=== PATIENT | male | born 1950 | race Caucasian/White ===

== ENCOUNTER 2017-02-02 14:49 | Emergency (ER) | payer OTHER, MEDICARE ==
[~2017-02-02] VITALS: Ht 188 cm; Wt 65.8 kg
--- NOTE | 2017-02-02 15:03 | ED UPPER/LOWER EXTREMITY COMPL ---
History of Present Illness General Chief Complaint: Laceration Procedure Stated Complaint: TABLESAW VS FINGERS ?AMPUTATION Source: patient Exam Limitations: no limitations Vital Signs & Intake/Output Vital Signs & Intake/Output Vital Signs Date Time Temp Pulse Resp B/P B/P Pulse O2 O2 Flow FiO2 Mean Ox Delivery Rate 02/029 70 16 123/64 95 Room Air 02/02 1714 77 18 107/60 98 Room Air ED Intake and Output 02/03 0000 02/02 1200 Intake Total Output Total Balance Patient 145 lb Weight Weight Reported by Patient Measurement Method Allergies Coded Allergies: NO KNOWN ALLERGIES (02/02/17) Reconcile Medications Amoxicillin/Potassium Clav (Augmentin 875-125 Tablet) 875 MG-125 MG TABLET 1 TAB PO BID LACERATION/FRACTURE Levothyroxine Sodium 150 MCG TABLET 1 TAB PO DAILY THYROID (Reported) Lisinopril 20 MG TABLET 1 TAB PO DAILY BP (Reported) Multivitamin (Multi-Day Vitamins) 1 EACH TABLET 1 TAB PO DAILY SUPPLEMENT ( Reported) Oxycodone HCl/Acetaminophen (Percocet 5-325 MG Tablet) 5 MG-325 MG TABLET 1 TAB PO TID PRN PAIN DO NOT OPERATE MOTOR VEHICLES WHILE TAKING THIS MEDICATION Simvastatin (Simvastatin*) 40 MG TABLET 1 TAB PO QPM CHOLESTEROL (Reported) Sumatriptan Succinate 100 MG TABLET 1 TAB PO AD PRN MIGRAINES (Reported) may repeat in 2 hours; do not exceed 200 mg in 24 hours [SUNCHORELLA] 1 CAP PO BID SUPPLEMENT (Reported) Triage Note: PT TO TRIAGE WITH LAC TO LEFT HAND OF 1-4 DIGITS ON A TABLE SAW. BLEEDING CONTROLED, BONE INVOLVED. PT APPEARED TO BE CLOSE TO PASSING OUT IN TRIAGE. PT BROUGHT TO [facility]. PT COMPLETELY PASSED OUT ONCE HE ARRIVED TO [facility], DR VINCENT AT BESIDE Triage Nurses Notes Reviewed? yes Onset: Abrupt Duration: constant Timing: single episode today Severity: severe Severity Numbers: 10 Pain/Injury Location: Left: 1st finger, 2nd finger, 3rd finger, 4th finger. Method of Injury: laceration HPI: Patient is a 66-year-old male who presents to emergency room stating that today while sawing TODAY he accidentally sawed the distal aspects of his right first through fourth digits of his hand resulting in significant lacerations. Bleeding was not controlled prior to arrival patient on arrival was noted to be presyncope Patient is a left arm dominant. tetanus is unknown (EDNA HOYT) Past History Travel History Traveled to [place] past 21 day No Medical History Any Pertinent Medical History? see below for history Cardiovascular: hypertension, hyperlipidemia Endocrine: hypothyroidism Surgical History Surgical History: non-contributory Psychosocial History What is your primary language Tanz[place] Family History Hx Contributory? No (EDNA HOYT) Review of Systems Review of Systems Constitutional: Reports: no symptoms. EENTM: Reports: no symptoms. Respiratory: Reports: no symptoms. Cardiovascular: Reports: no symptoms. Gastrointestinal/Abdominal: Reports: no symptoms. Genitourinary: Reports: no symptoms. Musculoskeletal: Reports: see HPI, joint pain. Skin: Reports: see HPI. Neurological/Psychological: Reports: no symptoms. Hematologic/Endocrine: Reports: see HPI, bleeding. Immunological: Reports: no symptoms. All Other Systems: Reviewed and Negative (EDNA HOYT) Physical Exam Physical Exam General Appearance: moderate distress Head: atraumatic Eyes: Bilateral: normal appearance, PERRL, EOMI. Ears, Nose, Throat: normal pharynx Cardiovascular/Respiratory: normal breath sounds, normal peripheral pulses, regular rate/rhythm Peripheral Pulses: 2+ radial (R), 2+ radial (L) Neurologic/Tendon: normal sensation, normal motor functions, normal tendon functions, responds to pain, no evidence tendon injury, no pulse deficit Skin: normal color Diagram Hands Front 1) Noted significant irregular serrated deep lacerations with fracture of nail Sensation intact no active bleeding full active range of motion noted with flexion extension abduction and adduction with resistance no tendon deficit 2) Noted significant irregular serrated deep lacerations with fracture of nail Sensation intact no active bleeding full active range of motion noted with flexion extension abduction and adduction with resistance no tendon deficit 3) Noted distal serrated deep laceration full active range of motion noted. Range of motion noted 4) Noted subcutaneous laceration full active range of motion full resisted range of motion (EDNA HOYT) Progress Differential Diagnosis: arterial insufficiency, compartment syndrome, contusion, dislocation, DVT, fracture, gout, septic arthritis, sprain, tendon injury Plan of Care: Orders Procedure Date/time Status Durable Medical Equipment 02/03 5883 Active X-rays resulted and first and second digit of right hand fractures in which at this time on exam there is no concerns of tendon deficit. Patient on initial examination was noted to have vasovagal syncope for approximately 10 seconds where he was in significant pain. Blood pressure was hypotensive in which IV was established and IV fluid resuscitation was administered blood work and EKG was unremarkable. Approximate 25 minutes later after ketorolac was administered and IV fluids were administered patient had significant please resolution of his symptoms. Patient was given 2 mg of morphine with now patient is resting currently that bedside. Dr. Arreguin will be presented to the emergency room for suture repair. Discussed hand off with JASPREET Arreguin will advise patient for follow-up IN HIS OFFICE currently he is performing the suture repair. He advised patient to be given Augmentin. Xeroform bandages were given to (EDNA HOYT) Diagnostic Imaging: Viewed by Me: Radiology Read. Radiology Impression: acute abnormality, fracture Hand-Off Endorsed To: FAMILIA SUBRAMANIAN Endorsed Time: 2001 Pending: other Comments: PATIENT: JAQUELIN ROBERTS PRESENT AGE: 66 PATIENT ACCOUNT NO: [id number] : 49 LOCATION: [facility] ORDERING PHYSICIAN: WENDY VINCENT MD SERVICE DATE: 02/02/17 EXAM TYPE: RAD - XRY-FINGERS, RIGHT EXAMINATION: Right fingers CLINICAL INFORMATION: Lacerations with table saw COMPARISON: None TECHNIQUE: Three views of the right hand. FINDINGS: There is soft tissue amputation of the distal tip and ulnar side of the index finger. Soft tissue laceration and partial amputation of the distal tip of the middle digit. Small soft tissue laceration of the ring finger distally at the ulnar side of the fifth digit. There is a fracture with slight displacement of the distal tuft of the index finger at the ulnar side of the bone. No osseous abnormality seen of the middle or ring finger. Thumb has a displaced fracture fragment from the proximal phalanx of the thumb at the radial side of the bone at the IP joint. The fracture fragment is displaced distally. The fracture fragment measures about 5 mm. There is an associated soft tissue laceration. There is no radiopaque foreign body. IMPRESSION: 1. Laceration with fracture of the distal index finger and at the proximal phalanges of the thumb at the IP joint. 2. Soft tissue laceration without bony abnormality of the distal middle and ring finger. DICTATED BY: TANNER SULLIVAN MD DATE/TIME DICTATED:02/02/171524 VAT CLEANER:ALICIA DATE/TIME TRANSCRIBED:02/02/171524 (EDNA HOYT) Departure Departure Disposition: HOME OR SELF CARE Condition: Stable Clinical Impression Primary Impression: Laceration of finger, complicated Secondary Impressions: Fracture of distal phalanx of finger of right hand Referrals: ANDRZEJ MATOS,CHERY SERRANO MD,TULIO Turner (PCP/Family) Additional Instructions: As discussed begin the prescription of Augmentin as directed for the full course and begin the prescription of Percocet for pain. If you note signs of infection redness, pain, swelling, discharge return to emergency room. Follow-up with plastic surgeon Dr. Arreguin as directed. Prescription is waiting at [facility] pharmacy. Departure Forms: Customer Survey General Discharge Information Prescriptions: Current Visit Scripts Amoxicillin/Potassium Clav (Augmentin 875-125 Tablet) 1 TAB PO BID #20 TAB Oxycodone HCl/Acetaminophen (Percocet 5-325 MG Tablet) 1 TAB PO TID PRN PAIN #10 TAB DO NOT OPERATE MOTOR VEHICLES WHILE TAKING THIS MEDICATION (EDNA HOYT) PA/SUPPLEMENTAL MANAGER Co-Sign Statement Statement: ED Attending supervision documentation- [X] I saw and evaluated the patient. I have also reviewed all the pertinent lab results and diagnostic results. I agree with the findings and the plan of care as documented in the PA's/SUPPLEMENTAL MANAGER's documentation. [X] I have reviewed the ED Record and agree with the PA's/SUPPLEMENTAL MANAGER's documentation. [] Additions or exceptions (if any) to the PAs/SUPPLEMENTAL MANAGER's note and plan are summarized below: [] (VITO MATOS,BOO Stewart) (EDNA HOTY)
[2017-02-02 15:26] LABS: ABSOLUTE BASOPHIL COUNT 0 /CUMM (0.0-0.2); ABSOLUTE EOSINOPHIL COUNT 0.2 /CUMM (0.0-0.7); ABSOLUTE GRANULOCYTE CT 4.8 /CUMM (1.4-6.5); ABSOLUTE MONOCYTE COUNT 0.6 /CUMM (0.10-0.60); BASOPHIL % 0.5 % (0.0-2.0); EOSINOPHIL % 2.6 % (0-5); GRANULOCYTE % 55.3 % (42.2-75.2); HEMATOCRIT 42.2 % (42-52); MEAN CORPUSCULAR HGB 30.6 PG (27.0-31.0); MEAN CORPUSCULAR VOLUME 89.9 FL (80.0-94.0); MEAN PLATELET VOLUME 7.9 FL (7.4-10.4); PLATELET COUNT 249 /CUMM (130-400); RBC DISTRIBUTION WIDTH 13.6 % (11.5-14.5); RED BLOOD CELL CT 4.69 /CUMM (4.70-6.10); WHITE BLOOD CELL COUNT 8.6 /CUMM (4.8-10.8)
--- NOTE | 2017-02-02 15:33 | RADIOLOGY REPORT ---
EXAMINATION: Right fingers CLINICAL INFORMATION: Lacerations with table saw COMPARISON: None TECHNIQUE: Three views of the right hand. FINDINGS: There is soft tissue amputation of the distal tip and ulnar side of the index finger. Soft tissue laceration and partial amputation of the distal tip of the middle digit. Small soft tissue laceration of the ring finger distally at the ulnar side of the fifth digit. There is a fracture with slight displacement of the distal tuft of the index finger at the ulnar side of the bone. No osseous abnormality seen of the middle or ring finger. Thumb has a displaced fracture fragment from the proximal phalanx of the thumb at the radial side of the bone at the IP joint. The fracture fragment is displaced distally. The fracture fragment measures about 5 mm. There is an associated soft tissue laceration. There is no radiopaque foreign body. IMPRESSION: 1. Laceration with fracture of the distal index finger and at the proximal phalanges of the thumb at the IP joint. 2. Soft tissue laceration without bony abnormality of the distal middle and ring finger.
[2017-02-02] MEDS ORDERED: SIMVASTATIN40 M1 PO (16:17)
[2017-02-02] MEDS ORDERED: LISINOPRIL20 M1 PO (16:17)
[2017-02-02] MEDS ORDERED: LEVOTHYROXINE150 MCG PO (16:17)
[2017-02-02] MEDS ORDERED: MULTI-DAY VITA1 EACH PO (16:18)
[2017-02-02] MEDS ORDERED: SUMATRIPTAN SU100 M1 PO (16:18)
[2017-02-02] MEDS ORDERED: [UNRECOGNIZED DRUG - OTHER] PO (16:18)
[2017-02-02] MEDS ORDERED: AUGMENTIN 875-1 EACH PO (19:54)
[2017-02-02] MEDS ORDERED: PERCOCET 5-3251 EACH PO (19:54)
[2017-02-02 20:59] VITALS: BP 123/64
--- NOTE | 2017-02-03 18:31 | Cons- Plastic Surgery ---
General Information and HPI Consulting Request Date of Consult: 02/02/17 Requested By: ED Reason for Consult: Right hand laceration Source of Information: patient Exam Limitations: no limitations History of Present Illness: 66 yo male s/p laceration repair of right thumb, index, long, and ring finger with circular saw while at home. Allergies/Medications Allergies: Coded Allergies: NO KNOWN ALLERGIES (02/02/17) Home Med List: Amoxicillin/Potassium Clav (Augmentin 875-125 Tablet) 875 MG-125 MG TABLET 1 TAB PO BID LACERATION/FRACTURE Levothyroxine Sodium 150 MCG TABLET 1 TAB PO DAILY THYROID (Reported) Lisinopril 20 MG TABLET 1 TAB PO DAILY BP (Reported) Multivitamin (Multi-Day Vitamins) 1 EACH TABLET 1 TAB PO DAILY SUPPLEMENT ( Reported) Oxycodone HCl/Acetaminophen (Percocet 5-325 MG Tablet) 5 MG-325 MG TABLET 1 TAB PO TID PRN PAIN DO NOT OPERATE MOTOR VEHICLES WHILE TAKING THIS MEDICATION Simvastatin (Simvastatin*) 40 MG TABLET 1 TAB PO QPM CHOLESTEROL (Reported) Sumatriptan Succinate 100 MG TABLET 1 TAB PO AD PRN MIGRAINES (Reported) may repeat in 2 hours; do not exceed 200 mg in 24 hours [SUNCHORELLA] 1 CAP PO BID SUPPLEMENT (Reported) Current Medications: Current Medications Sig/Baljeet Start time Last Medication Dose Route Stop Time Status Admin Lidocaine 0 .STK-MED ONE 02/02 1911 DC .ROUTE Past History Medical History Blood Transfusion Hx: No Cardiovascular: hypertension, hyperlipidemia Endocrine: hypothyroidism Surgical History Pertinent Surgical History: non-contributory Review of Systems Review of Systems: NA Review of Systems Constitutional: Denies: no symptoms. Exam & Diagnostic Data Vital Signs and I&O Vital Signs Date Time Temp Pulse Resp B/P B/P Pulse O2 O2 Flow FiO2 Mean Ox Delivery Rate 02/02 2059 70 16 123/64 95 Room Air Intake & Output 02/03 1600 02/03 0800 02/03 0000 02/02 1600 02/02 0802/02 0000 Intake Total Output Total Balance Patient 145 lb Weight Weight Reported by Patient Measurement Method Physical Exam Extremities: RUE-thumb with 3 cm dorsal laceration with exposed extensor tendon and IP joint, 3 cm laceration ulnar aspect of index finger, 2 cm laceration ulnar aspect of long finger, 1 cm laceration ulnar aspect of ring distal tips, motor and sensory intact, good capillary refill Imaging Results: Right Hand X-ray: distal davion fracture index, thumb-displaced fracture proximal phalanx at radial side of bone at IP Joint, 5 mm fragment Assessment/Plan Assessment/Plan Right hand thumb, index, long finger, ring finger laceration, with davion fracture of index finger, minimally displaced fracture of proximal phalanx of right thumb. -Discussed with patient and laceration repair. The procedure, risks, benefits, and alternatives discussed. Patient understands and agrees with plan. -PROCEDURE: Right thumb and index finger digital block performed with 10 cc of 2 % lidocaine. All wound sites irrigated with normal saline and hydrogen peroxide. 4-0 chromic used to reapproximate skin edges of wound of index finger and thumb, Ulnar aspect of nail of right thumb removed, Dermabond used to approximate injured nail bed, bacitracin, sterile dressings applied to all finger wounds. Patient tolerated procedure. Post-procedure instructions provided verbally to the patient. Problem List: 1. Laceration of finger, complicated 2. Fracture of distal phalanx of finger of right hand Other Findings/Comments: NA Consult Acknowledgment - Thank you for your consult request. Attending MD Review Statement Attending Statement Attending MD Statement: examined this patient, discussed with family, discussed w/nursing Attending Assessment/Plan: Laceration repair as discussed
== END 2017-02-02 21:12 ==
LOC: ERH 14:49
PROVIDERS: Emergency Medicine
DX: S62.630A Displaced fracture of distal phalanx of right index finger, initial encounter for closed fracture (principal); S61.212A Laceration without foreign body of right middle finger without damage to nail, initial encounter; S61.214A Laceration without foreign body of right ring finger without damage to nail, initial encounter; W27.0XXA Contact with workbench tool, initial encounter; Y92.9 Unspecified place or not applicable; Y93.9 Activity, unspecified
CPT/HCPCS: 73140-RT; 90471; 90714; 93005; 93010; 96374; 96375; J1885; J2001